=== PATIENT | male | born 1970 | race Caucasian/White ===

== ENCOUNTER 2016-12-03 17:52 | Inpatient (IN) | payer SELFPAY ==
[~2016-12-03] VITALS: Ht 175.3 cm; Wt 116.0 kg
[2016-12-03 17:54] VITALS: BP 166/99; PULSE 104; RESP 20; TEMP 100.4; O2SAT 95
--- NOTE | 2016-12-03 17:59 | PD ---
Physical Exam Time Seen by Provider: 17:56 Narrative 46yo M c/o R sided facial swelling, fevers, throat pain since last night. Can swallow own saliva. +R sided airway edema. Denies difficulty breathing. Patient seen in triage. VS reviewed. Awaiting bed placement. Data Data Last Documented VS Vital Signs Date Time Temp Pulse Resp B/P (MAP) Pulse Ox O2 Delivery O2 Flow Rate FiO2 12/03/16 17:54 100.4 104 20 166/99 (121) 95 Room Air MDM Supervised Visit with YINA: Olivia Bingham Dec 03, 2016 17:59
[2016-12-03] MEDS ORDERED: CLINDAMYCIN INJ 600 MG in SODIUM CHLORIDE 0.9% INJ 100 ML IV ONE (18:45)
[2016-12-03] MEDS ORDERED: SODIUM CHLOR 0.9% 1000 ML INJ 1,000 ML IV ONE (18:45)
[2016-12-03] MEDS ORDERED: ACETAMINOPHEN 325 MG TAB PO ONE (18:45)
--- NOTE | 2016-12-03 18:47 | PD ---
HPI Chief Complaint: Facial Pain or Swelling Time Seen by Provider: 18:14 Travel History International Travel<30 days: No Contact w/Intl Traveler<30days: No Traveled to known affect area: No History of Present Illness HPI Patient is a 46-year-old male who presents to emergency room complaints of right -sided facial swelling with fevers and chills which started yesterday. Patient reports that he was working today and noticed that his right side of his face was swollen,. Patient denies any injuries, no other c/o. PFSH Past Medical History Medical History: Denies Significant Hx Diminished Hearing: No Tetanus Vaccination: < 5 Years Influenza Vaccination: No Past Surgical History Surgical History: No Previous Surgery Social History Alcohol Use: No Tobacco Use: No Substance Use: No Allergies-Medications (Allergen,Severity, Reaction): Coded Allergies: No Known Allergies (Unverified , 12/03/16) Reported Meds & Prescriptions Reported Meds & Active Scripts Active No Active Prescriptions or Reported Medications Review of Systems HENT: Positive: Neck Pain, Other (right sided facial swelling/pain) Physical Exam Narrative GENERAL: Mild distress SKIN: Focused skin assessment warm/dry. HEAD: Atraumatic. Normocephalic. EYES: Pupils equal and round. No scleral icterus. No injection or drainage. ENT: No nasal bleeding or discharge. Mucous membranes pink and moist. Patient with swelling to right lower jaw, no trismus on exam NECK: Trachea midline. No JVD. CARDIOVASCULAR: Regular rate and rhythm. No murmur appreciated. RESPIRATORY: No accessory muscle use. Clear to auscultation. Breath sounds equal bilaterally. GASTROINTESTINAL: Abdomen soft, non-tender, nondistended. Hepatic and splenic margins not palpable. MUSCULOSKELETAL: No obvious deformities. No clubbing. No cyanosis. No edema. NEUROLOGICAL: Awake and alert. No obvious cranial nerve deficits. Motor grossly within normal limits. Normal speech. PSYCHIATRIC: Appropriate mood and affect; insight and judgment normal. Data Data Last Documented VS Vital Signs Date Time Temp Pulse Resp B/P (MAP) Pulse Ox O2 Delivery O2 Flow Rate FiO2 12/03/16 17:54 100.4 104 20 166/99 (121) 95 Room Air Orders Orders Complete Blood Count With Diff (12/03/16 17:59) Comprehensive Metabolic Panel (12/03/16 17:59) Prothrombin Time / Inr (Pt) (12/03/16 17:59) Act Partial Throm Time (Ptt) (12/03/16 17:59) Lactic Acid Sepsis Protocol (12/03/16 17:59) Urinalysis - C+S If Indicated (12/03/16 17:59) Blood Culture (12/03/16 17:59) Ecg Monitoring (12/03/16 17:59) Iv Access Insert/Monitor (12/03/16 17:59) Oximetry (12/03/16 17:59) Ct Soft Tiss Neck W Iv Cont (12/03/16 ) Clindamycin Inj (Cleocin Inj) (12/03/16 18:45) MDM Medical Decision Making Medical Screen Exam Complete: Yes Emergency Medical Condition: Yes Interpretation(s) Vital Signs Date Time Temp Pulse Resp B/P (MAP) Pulse Ox O2 Delivery O2 Flow Rate FiO2 12/03/16 17:54 100.4 104 20 166/99 (121) 95 Room Air Differential Diagnosis Differential includes facial abscess, Ck's angina, cellulitis, dental infection/abscess, parotitis Narrative Course Patient is a 46-year-old male who presents to emergency room with swelling to the right side of his face. Swelling began yesterday. Patient febrile with a temp of 100.4, patient tachycardic with a HR of 104, sepsis workup initiated, patient has been pancultured, lactate ordered. IV fluids as well as clindamycin ordered. CT soft tissue of neck ordered Patient signed out to Dr. Elias at change of shift Scripts No Active Prescriptions or Reported Meds Holly Kessler DO Dec 03, 2016 18:47
[2016-12-03 18:52] LABS: AUTOMATED NEUTROPHIL # 11.3 TH/MM3 (1.8-7.7); BASOPHIL % 0.3 % (0.0-2.0); EOSINOPHIL % 0.2 % (0.0-4.0); HEMATOCRIT 43.2 % (39.0-51.0); LYMPH % 11.3 % (9.0-44.0); LYMPHOCYTE # 1.6 TH/MM3 (1.0-4.8); MEAN CELL VOLUME 94.5 FL (80.0-100.0); MEAN CORPUSCULAR HEMOGLOBIN 32.4 PG (27.0-34.0); MEAN CORPUSCULAR HGB CONC 34.3 % (32.0-36.0); MONO % 9.4 % (0.0-8.0); NEUT % 78.8 % (16.0-70.0); PLATELET COUNT 191 TH/MM3 (150-450); RED BLOOD COUNT 4.57 MIL/MM3 (4.50-5.90); WHITE BLOOD COUNT 14.4 TH/MM3 (4.0-11.0)
[2016-12-03 18:53] VITALS: BP 149/80; PULSE 80; RESP 20; TEMP 99.4; O2SAT 95
[2016-12-03 18:54] LABS: HEMO FLAGS AUTO DIFF
[2016-12-03 19:05] LABS: APTT (PATIENT) 29.1 SEC (24.3-30.1); INTERNATIONAL NORMALIZED RATIO 1.1 RATIO; PROTHROMBIN TIME - PATIENT 12.3 SEC (9.8-11.6)
[2016-12-03 19:06] VITALS: BP 149/80; PULSE 80; RESP 20; TEMP 99.4; O2SAT 98
[2016-12-03 19:09] LABS: ANION GAP 9 MEQ/L (5-15); AST (GOT) 25 U/L (15-37); BICARBONATE 25.4 MEQ/L (21.0-32.0); BLOOD UREA NITROGEN 11 MG/DL (7-18); CHLORIDE 101 MEQ/L (98-107); GLOMERULAR FILTRATION RATE 78 ML/MIN (>89); POTASSIUM 3.6 MEQ/L (3.5-5.1); SODIUM (NA) 135 MEQ/L (136-145)
[2016-12-03 19:10] LABS: ALT (GPT) 29 U/L (12-78)
--- NOTE | 2016-12-03 19:11 | PD ---
Physical Exam Narrative Received sign out from previous team to follow up CT soft tissue neck and labs. Please see her note for further details. 46yo M with HTN here with right sided facial swelling and pain since yesterday. States it occur relatively fast and had some sob yesterday that resolved. Pt feels better after the antibiotics. Pt was initially febrile at 100.4 and HR 104bpm. Pt was given acetaminophen, NS IVF, and clindamycin and is feeling better. Labs reviewed, leukocytosis at 14.4. Normal lactic acid. CT soft tissue neck showed complex heterogeneously enhancing mass right upper neck in anterior triangle and diagstric region extending into the parapharyngeal space. Neoplasm cannot be absolutely excluded. Although from clinical presentation, I think this is infectious. Discussed with Dr. Chapman and accepted to her service. Discussed with Dr. Tran from ENT and he agreed to see him. Data Data Last Documented VS Vital Signs Date Time Temp Pulse Resp B/P (MAP) Pulse Ox O2 Delivery O2 Flow Rate FiO2 12/03/16 20:05 77 18 143/85 (104) 99 Room Air 12/03/16 19:06 99.4 Orders Orders Complete Blood Count With Diff (12/03/16 17:59) Comprehensive Metabolic Panel (12/03/16 17:59) Prothrombin Time / Inr (Pt) (12/03/16 17:59) Act Partial Throm Time (Ptt) (12/03/16 17:59) Lactic Acid Sepsis Protocol (12/03/16 17:59) Urinalysis - C+S If Indicated (12/03/16 17:59) Blood Culture (12/03/16 17:59) Ecg Monitoring (12/03/16 17:59) Iv Access Insert/Monitor (12/03/16 17:59) Oximetry (12/03/16 17:59) Ct Soft Tiss Neck W Iv Cont (12/03/16 ) Clindamycin Inj (Cleocin Inj) (12/03/16 18:45) Acetaminophen (Tylenol) (12/03/16 18:45) Sodium Chlor 0.9% 1000 Ml Inj (Ns 1000 M (12/03/16 18:45) Iohexol 350 Inj (Omnipaque 350 Inj) (12/03/16 20:01) Admit To Inpatient (12/03/16 ) Vital Signs (Adult) Q4H (12/03/16 21:47) Activity Oob With Assistance (12/03/16 21:47) Microsoft Access Developer / Telemetry .CONTINUOUS (12/03/16 21:47) Diet Clear Liquid (12/04/16 Breakfast) Sodium Chloride 0.9% Flush (Ns Flush) (12/03/16 22:00) Sodium Chloride 0.9% Flush (Ns Flush) (12/04/16 09:00) Basic Metabolic Panel (Bmp) (12/04/16 06:00) Complete Blood Count With Diff (12/04/16 06:00) Case Management Consult (12/03/16 21:47) Naloxone Inj (Narcan Inj) (12/03/16 22:00) Inpatient Certification (12/03/16 ) Consult Ent (12/03/16 ) Dexamethasone Inj (Decadron Inj) (12/04/16 00:00) Ampicillin-Sulbactam Inj (Unasyn Inj) (12/03/16 22:00) Clindamycin Inj (Cleocin Inj) (12/04/16 04:00) Admit Order (Ed Use Only) (12/03/16 21:57) Labs Laboratory Tests Test 12/03/16 18:25 White Blood Count 14.4 TH/MM3 Red Blood Count 4.57 MIL/MM3 Hemoglobin 14.8 GM/DL Hematocrit 43.2 % Mean Corpuscular Volume 94.5 FL Mean Corpuscular Hemoglobin 32.4 PG Mean Corpuscular Hemoglobin Concent 34.3 % Red Cell Distribution Width 13.0 % Platelet Count 191 TH/MM3 Mean Platelet Volume 8.3 FL Neutrophils (%) (Auto) 78.8 % Lymphocytes (%) (Auto) 11.3 % Monocytes (%) (Auto) 9.4 % Eosinophils (%) (Auto) 0.2 % Basophils (%) (Auto) 0.3 % Neutrophils # (Auto) 11.3 TH/MM3 Lymphocytes # (Auto) 1.6 TH/MM3 Monocytes # (Auto) 1.4 TH/MM3 Eosinophils # (Auto) 0.0 TH/MM3 Basophils # (Auto) 0.0 TH/MM3 CBC Comment AUTO DIFF Differential Comment AUTO DIFF CONFIRMED Prothrombin Time 12.3 SEC Prothromb Time International Ratio 1.1 RATIO Activated Partial Thromboplast Time 29.1 SEC Blood Urea Nitrogen 11 MG/DL Creatinine 1.03 MG/DL Random Glucose 112 MG/DL Total Protein 7.7 GM/DL Albumin 3.5 GM/DL Calcium Level 8.6 MG/DL Alkaline Phosphatase 84 U/L Aspartate Amino Transf (AST/SGOT) 25 U/L Alanine Aminotransferase (ALT/SGPT) 29 U/L Total Bilirubin 0.6 MG/DL Sodium Level 135 MEQ/L Potassium Level 3.6 MEQ/L Chloride Level 101 MEQ/L Carbon Dioxide Level 25.4 MEQ/L Anion Gap 9 MEQ/L Estimat Glomerular Filtration Rate 78 ML/MIN Lactic Acid Level 0.7 mmol/L MDM Supervised Visit with YINA: No Diagnosis Primary Impression: Cellulitis, face Admitting Information Admitting Physician Requests: Admit Scripts No Active Prescriptions or Reported Meds Kaia Elias DO Dec 03, 2016 19:11
[2016-12-03 19:12] LABS: ALKALINE PHOSPHATASE 84 U/L (45-117); TOTAL BILIRUBIN ADULT 0.6 MG/DL (0.2-1.0)
[2016-12-03 19:55] LABS: SCAN/DIFF AUTO DIFF CONFIRMED
[2016-12-03] MEDS ORDERED: IOHEXOL 350 MG/ML 10 ML VIAL (for RAD DIAG) IVCONTRAST ONE (20:01)
[2016-12-03 20:05] VITALS: BP 143/85; PULSE 77; RESP 18; O2SAT 99
--- NOTE | 2016-12-03 21:32 | RADRPT ---
EXAM DATE/TIME: 12/03/2016 19:41 [facility] COMPARISON: No previous studies available for comparison. INDICATIONS : Swelling and pain right face and mandibal area. IV CONTRAST: 69 cc Omnipaque 350 (iohexol) IV RADIATION DOSE: 16.89 CTDIvol (mGy) MEDICAL HISTORY : None SURGICAL HISTORY : None. ENCOUNTER: Initial ACUITY: 1 day PAIN SCALE: 5/10 LOCATION: neck TECHNIQUE: Volumetric scanning of the neck was performed. Using automated exposure control and a djustment of the mA and/or kV according to patient size, radiation dose was kept as low as reasonably achievable to obtain optimal diagnostic quality images. DICOM format image data is available elect ronically for review and comparison. FINDINGS: There is a mass seen in the anterior triangle/digastric region in the right side of the neck. This measures at least 3.8 cm in diameter. It does have areas of heterogeneous contrast enha ncement. It does abut the lateral aspect of the oropharynx on the right. The tonsils appear enlarge d especially on the right. There does appear to be induration in the subcutaneous fat in the right u pper neck and right side of the face around this region. The submandibular gland on the right is ant eriorly displaced. The left side of the neck is unremarkable. The nasopharynx appears. The hypopharynx and glottic structures are grossly intact. The thyroid glan d is normal. The parotid glands are grossly intact. There are some mildly prominent lymph nodes see n in the posterior triangle region on the right side. The bony structures are grossly intact. CONCLUSION: Complex heterogeneously enhancing mass seen in the right upper neck in the anterior t riangle and digastric region and extending into the parapharyngeal space. This does appear to be ass ociated with induration of the subcutaneous fat throughout the right upper neck and lower face region . The induration of the fat is most suggestive of an inflammatory process such as infection. The mas s may represent confluent areas adenopathy. The tonsils appear enlarged. Neoplasm cannot absolutely be excluded. This should be correlated with the patient's clinical symptoms. Lincoln Trammell MD on December 03, 2016 at 20:58 Board Certified Radiologist. This report was verified electronically.
[2016-12-03] MEDS ORDERED: NALOXONE HCL 0.4 MG/ML AMP IV PRN (22:00)
[2016-12-03] MEDS ORDERED: SODIUM CHLORIDE 0.9% FLUSH 10 ML FLUSH IV FLUSH PRN (22:00)
[2016-12-03] MEDS: AMPICILLIN-SULBACTAM INJ 3 GM in SODIUM CHLORIDE 0.9% INJ 100 ML IV SCH (22:25)
[2016-12-03 22:45] VITALS: BP 164/110; PULSE 94; RESP 22; TEMP 99; O2SAT 98
[2016-12-03 23:41] VITALS: BP 127/78; PULSE 71; RESP 18; TEMP 98.1; O2SAT 98
[2016-12-04] VITALS (8 sets, daily range): BP systolic 131–159; BP diastolic 73–99; PULSE 70–84; RESP 18–20; TEMP 96.9–98.5; O2SAT 93–98
[2016-12-04] MEDS: DEXAMETHASONE SOD PHOS 4 MG/ML VIAL IV PUSH SCH ×5 (00:48→23:38)
[2016-12-04] MEDS ORDERED: ACETAMINOPHEN/HYDROcodone 325 MG/5 MG TAB PO PRN (01:30)
[2016-12-04] MEDS: AMPICILLIN-SULBACTAM INJ 3 GM in SODIUM CHLORIDE 0.9% INJ 100 ML IV SCH ×4 (02:44→21:59)
--- NOTE | 2016-12-04 04:19 | HHI.HP ---
HPI [facility] Primary Care Physician No Primary Care Physician Admission Diagnosis Right facial cellulitis Diagnoses: Chief Complaint: Right facial pain Travel History International Travel<30 Days: No Contact w/Intl Traveler <30 Da: No Traveled to Known Affected Are: No History of Present Illness 46 y/o English with some Burundian speaking male with a history of HTN (unsure of the medication name he takes) presented to the ED with complaints of right facial swelling and pain for the last 2 days. He states the right side of his face just began to swell and is painful with radiation down his neck. He denies any trouble swallowing or breathing. Also denies any chest pain, fever or chills. Review of Systems Except as stated in HPI: all other systems reviewed are Neg Past Family Social History Past Medical History HTN Past Surgical History Patient denies any surgical history Reported Medications Reported Meds & Active Scripts Active No Active Prescriptions or Reported Medications Allergies: Coded Allergies: No Known Allergies (Unverified , 12/03/16) Active Ordered Medications Current Medications Medications (Trade) Dose Ordered Sig/Jeff Route Start Time Stop Time Status Last Admin (NS Flush) 2 ml UNSCH PRN IV FLUSH 12/03/16 22:00 (NS Flush) 2 ml BID IV FLUSH 12/04/16 09:00 (Narcan Inj) 0.4 mg UNSCH PRN IV 12/03/16 22:00 (Decadron Inj) 4 mg Q6HR IV PUSH 12/04/16 00:00 12/04/16 04:34 Ampicillin Sodium/ Sulbactam Sodium 3 gm/Sodium Chloride 100 ml @ 200 mls/hr Q6H IV 12/03/16 22:00 12/04/16 02:44 Clindamycin Phosphate 900 mg/ Sodium Chloride 106 ml @ 212 mls/hr Q6H IV 12/04/16 04:00 12/04/16 05:22 ([place] 5-325 Mg) 1 tab Q4H PRN PO 12/04/16 01:30 12/04/16 02:39 Family History Patient denies any family history Social History Patient denies any tobacco, alcohol or illicit drug use Physical Exam Vital Signs Vital Signs Date Time Temp Pulse Resp B/P (MAP) Pulse Ox O2 Delivery O2 Flow Rate FiO2 12/04/16 02:51 84 12/03/16 23:41 98.1 71 18 127/78 (94) 98 Room Air 12/03/16 22:45 99.0 94 22 164/110 (128) 98 12/03/16 20:05 77 18 143/85 (104) 99 Room Air 12/03/16 19:06 99.4 80 20 149/80 (103) 98 Room Air 12/03/16 18:53 99.4 80 20 149/80 (103) 95 Room Air 12/03/16 17:54 100.4 104 20 166/99 (121) 95 Room Air Physical Exam GENERAL: This is a well-nourished, well-developed patient, in no apparent distress. SKIN: No rashes, ecchymoses or lesions. Cool and dry. Right facial mass. HEAD: Atraumatic. Normocephalic. EYES: Pupils equal round and reactive. Extraocular motions intact. ENT: Nose without bleeding, purulent drainage or septal hematoma. Airway patent. NECK: Trachea midline. No JVD or lymphadenopathy. CARDIOVASCULAR: Regular rate and rhythm without murmurs, gallops, or rubs. RESPIRATORY: Clear to auscultation. Breath sounds equal bilaterally. No wheezes , rales, or rhonchi. GASTROINTESTINAL: Abdomen soft, non-tender, nondistended. MUSCULOSKELETAL: Extremities without clubbing, cyanosis, or edema. No joint tenderness, effusion, or edema noted. No calf tenderness. NEUROLOGICAL: Awake and alert. Motor and sensory grossly within normal limits. Normal speech. Laboratory Laboratory Tests Test 12/03/16 18:25 White Blood Count 14.4 Red Blood Count 4.57 Hemoglobin 14.8 Hematocrit 43.2 Mean Corpuscular Volume 94.5 Mean Corpuscular Hemoglobin 32.4 Mean Corpuscular Hemoglobin Concent 34.3 Red Cell Distribution Width 13.0 Platelet Count 191 Mean Platelet Volume 8.3 Neutrophils (%) (Auto) 78.8 Lymphocytes (%) (Auto) 11.3 Monocytes (%) (Auto) 9.4 Eosinophils (%) (Auto) 0.2 Basophils (%) (Auto) 0.3 Neutrophils # (Auto) 11.3 Lymphocytes # (Auto) 1.6 Monocytes # (Auto) 1.4 Eosinophils # (Auto) 0.0 Basophils # (Auto) 0.0 CBC Comment AUTO DIFF Differential Comment AUTO DIFF CONFIRMED Prothrombin Time 12.3 Prothromb Time International Ratio 1.1 Activated Partial Thromboplast Time 29.1 Blood Urea Nitrogen 11 Creatinine 1.03 Random Glucose 112 Total Protein 7.7 Albumin 3.5 Calcium Level 8.6 Alkaline Phosphatase 84 Aspartate Amino Transf (AST/SGOT) 25 Alanine Aminotransferase (ALT/SGPT) 29 Total Bilirubin 0.6 Sodium Level 135 Potassium Level 3.6 Chloride Level 101 Carbon Dioxide Level 25.4 Anion Gap 9 Estimat Glomerular Filtration Rate 78 Lactic Acid Level 0.7 Date/Time Source Procedure Growth Status 12/03/16 18:25 Blood Peripheral Aerobic Blood Culture Pending Received 12/03/16 18:25 Blood Peripheral Anaerobic Blood Culture Pending Received Result Diagram: 12/03/16 1825 12/03/16 1825 Imaging Last Impressions Neck CT 12/03/16 0000 Signed Impressions: Service Date/Time: November 19:41 - CONCLUSION: Complex heterogeneously enhancing mass seen in the right upper neck in the anterior triangle and digastric region and extending into the parapharyngeal space. This does appear to be associated with induration of the subcutaneous fat throughout the right upper neck and lower face region. The induration of the fat is most suggestive of an inflammatory process such as infection. The mass may represent confluent areas adenopathy. The tonsils appear enlarged. Neoplasm cannot absolutely be excluded. This should be correlated with the patient's clinical symptoms. Lincoln Trammell MD Caprini VTE Risk Assessment Caprini VTE Risk Assessment: No/Low Risk (score <= 1) Caprini Risk Assessment Model Point Value = 1 Point Value = 2 Point Value = 3 Point Value = 5 Age 41-60 Minor surgery BMI > 25 kg/m2 Swollen legs Varicose veins or History of unexplained or recurrent spontaneous Oral contraceptives or hormone replacement Sepsis (< 1 month) Serious lung disease, including pneumonia (< 1 month) Abnormal pulmonary function Acute myocardial infarction Congestive heart failure (< 1 month) History of inflammatory bowel disease Medical patient at bed rest Age 61-74 Arthroscopic surgery Major open surgery (> 45 min) Laparoscopic surgery (> 45 min) Malignancy Confined to bed (> 72 hours) Immobilizing plaster cast Central venous access Age >= 75 History of VTE Family history of VTE Factor V Leiden Prothrombin [id number] Lupus anticoagulant Anticardiolipin antibodies Elevated serum homocysteine Heparin-induced thrombocytopenia Other congenital or acquired thrombophilia Stroke (< 1 month) Elective arthroplasty Hip, pelvis, or leg fracture Acute spinal cord injury (< 1 month) Prophylaxis Regimen Total Risk Factor Score Risk Level Prophylaxis Regimen 0-1 Low Early ambulation 2 Moderate Order ONE of the following: *Sequential Compression Device (SCD) *Heparin 5000 units SQ BID 3-4 Higher Order ONE of the following medications: *Heparin 5000 units SQ TID *Enoxaparin/Lovenox 40 mg SQ daily (WT < 150 kg, CrCl > 30 mL/min) *Enoxaparin/Lovenox 30 mg SQ daily (WT < 150 kg, CrCl > 10-29 mL/min) *Enoxaparin/Lovenox 30 mg SQ BID (WT < 150 kg, CrCl > 30 mL/min) AND/OR *Sequential Compression Device (SCD) 5 or more Highest Order ONE of the following medications: *Heparin 5000 units SQ TID (Preferred with Epidurals) *Enoxaparin/Lovenox 40 mg SQ daily (WT < 150 kg, CrCl > 30 mL/min) *Enoxaparin/Lovenox 30 mg SQ daily (WT < 150 kg, CrCl > 10-29 mL/min) *Enoxaparin/Lovenox 30 mg SQ BID (WT < 150 kg, CrCl > 30 mL/min) AND *Sequential Compression Device (SCD) Assessment and Plan Problem List: (1) Cellulitis, face ICD Code: L03.211 - Cellulitis of face Status: Acute (2) HTN (hypertension) ICD Code: I10 - Essential (primary) hypertension Assessment and Plan 46 y/o male with a history of HTN (unsure of the medication name he takes) presented to the ED with complaints of right facial swelling and pain for the last 2 days. Facial Cellulitis with leukocytosis, wbc 14.4 CT soft tissue neck reviewed and showed complex heterogeneously enhancing mass right upper neck in anterior triangle and diagstric region extending into the parapharyngeal space. Neoplasm cannot be absolutely excluded. -Consult ENT for recommendations -Pain management with PO [place] -Unasyn and clindamycin IV for antibiotics -Decadron IV for inflammation HTN, chronic, patient is unsure of medication he takes -Monitor vitals -Enalapril PRN if needed DVT prophylaxis: SCDs Discussed Condition With Patient and RN Physician Certification 2 Midnight Certification Type: Admission for Inpatient Services Order for Inpatient Services The services are ordered in accordance with Medicare regulations or non- Medicare payer requirements, as applicable. In the case of services not specified as inpatient-only, they are appropriately provided as inpatient services in accordance with the 2-midnight benchmark. Estimated LOS (days): 2 days is the estimated time the patient will need to remain in the hospital, assuming treatment plan goals are met and no additional complications. Post-Hospital Plan: Home Lidia Maria Dec 04, 2016 04:19
[2016-12-04] MEDS: CLINDAMYCIN INJ 900 MG in SODIUM CHLORIDE 0.9% INJ 100 ML IV SCH ×4 (05:22→23:37)
[2016-12-04] MEDS ORDERED: ENALAPRILAT 1.25 MG/ML VIAL IV PUSH PRN (06:00)
[2016-12-04 07:46] LABS: AUTOMATED NEUTROPHIL # 11.5 TH/MM3 (1.8-7.7); BASOPHIL % 0.1 % (0.0-2.0); HEMATOCRIT 43.2 % (39.0-51.0); HEMO FLAGS DIFF FINAL; LYMPH % 7.4 % (9.0-44.0); LYMPHOCYTE # 0.9 TH/MM3 (1.0-4.8); MEAN CELL VOLUME 95.7 FL (80.0-100.0); MEAN CORPUSCULAR HEMOGLOBIN 31.9 PG (27.0-34.0); MEAN CORPUSCULAR HGB CONC 33.3 % (32.0-36.0); MONO % 2.9 % (0.0-8.0); NEUT % 89.6 % (16.0-70.0); PLATELET COUNT 210 TH/MM3 (150-450); RED BLOOD COUNT 4.51 MIL/MM3 (4.50-5.90); RED CELL DISTRIBUTION WIDTH 12.9 % (11.6-17.2); WHITE BLOOD COUNT 12.9 TH/MM3 (4.0-11.0)
[2016-12-04 08:06] LABS: BICARBONATE 26.6 MEQ/L (21.0-32.0); POTASSIUM 3.9 MEQ/L (3.5-5.1)
[2016-12-04] MEDS: SODIUM CHLORIDE 0.9% FLUSH 10 ML FLUSH IV FLUSH SCH ×2 (08:57→21:00)
--- NOTE | 2016-12-04 09:08 | HHI.PR ---
Addendum to Inpatient Note Additional Information Pt states that he is feeling better, pain is better controlled and rates it a 2/ 10. Denies any CP/SOB/N/V on exam, he continues to have a large mass on the right side of neck, painful to touch. HR, RRR w no murmurs, lungs are clear, abdomen soft, NT 46 y/o male with a history of HTN (unsure of the medication name he takes) presented to the ED with complaints of right facial swelling and pain for the last 2 days. Facial Cellulitis with leukocytosis, wbc 14.4 -->12.9 CT soft tissue neck reviewed and showed complex heterogeneously enhancing mass right upper neck in anterior triangle and diagstric region extending into the parapharyngeal space. Neoplasm cannot be absolutely excluded. -ENT consulted. Appreciate assistance. -Pain controlled w PO [place] -continue Unasyn and clindamycin IV for antibiotics -continue Decadron IV for inflammation -Blood cx pending. HTN, chronic, patient is unsure of medication he takes -Monitor vitals. Will start him on amlodipine 5mg po daily. -Enalapril PRN if needed DVT prophylaxis: SCDs/heparin Sofia Castorena MD Dec 04, 2016 09:08
[2016-12-04] MEDS ORDERED: amLODIPine BESYLATE 5 MG TAB PO ONE (10:00)
--- NOTE | 2016-12-04 15:46 | MB ---
cc: VENANCIO SANABRIA MD DATE OF CONSULTATION 12/04/16 CHIEF COMPLAINT Right-sided facial swelling. HISTORY OF PRESENT ILLNESS This is a 46-year-old [place] male with some Ukrainian speaking ability, reported to the emergency room with the complaint of a right facial swelling. He reports that it started approximately 2 days ago. He is suffering what he describes as intense pain along his right pretragus area radiating down by his ear and down to his neck. It is not difficult to swallow. He is having no pain breathing. He denies any chest pain, fever, chills. PAST MEDICAL HISTORY His past medical history is significant for hypertension. PAST SURGICAL HISTORY No surgeries. MEDICATIONS He is unsure of the name of his medication that he is on at home for his blood pressure. ALLERGIES NO KNOWN DRUG ALLERGIES. SOCIAL HISTORY Denies tobacco, alcohol or drugs. PHYSICAL EXAMINATION GENERAL: The patient is alert and oriented x3, in no acute distress. VITAL SIGNS: Afebrile. Vital signs stable. HEENT: Exam reveals a right parotid swelling with tenderness and pain. There is some thickened mucopurulent saliva expressed through the right parotid duct intraorally upon compression of the right parotid area with some extensive tenderness. Flexible laryngoscopy shows no airway compromise. Widely patent oral pharyngeal and hypopharyngeal airway with bilateral ___ cords that are mobile. NECK: Exam reveals no palpable adenopathy. HEART: Regular rate and rhythm. LUNGS: Clear to auscultation. IMAGING STUDIES CT scan reviewed shows right parotid swelling and edema possibly with an underlying neoplastic lesion in the right parotid area with extensive edema extending down into the neck with a widely patent airway. ASSESSMENT/PLAN Patient with acute right parotitis. Recommend IV clindamycin while in hospital as well as a 10-day outpatient course once discharged, our service recommend sialogogues [id number] times an hour as well as warm compresses to the right face. Once the patient is discharged he should continue with sialogogues until the swelling is completely gone. He needs ENT followup in approximately 2 weeks for further evaluation to determine whether he has an underlying mass in the parotid region, once this acute parotitis has resolved. Thank you for this consultation. Venancio Sanabria AT/EO /8:31 AM /3:34 PM
[2016-12-04] MEDS: HEPARIN SODIUM - SQ 10,000 UNITS/ML VIAL SQ SCH (21:59)
[2016-12-05] VITALS: BP 148/91; PULSE 77; RESP 20; TEMP 98; O2SAT 95
[2016-12-05 04:00] VITALS: BP 134/88; PULSE 72; RESP 20; TEMP 97.5; O2SAT 96
[2016-12-05 04:13] VITALS: PULSE 62
[2016-12-05] MEDS: AMPICILLIN-SULBACTAM INJ 3 GM in SODIUM CHLORIDE 0.9% INJ 100 ML IV SCH ×2 (04:30→09:46)
[2016-12-05] MEDS: DEXAMETHASONE SOD PHOS 4 MG/ML VIAL IV PUSH SCH ×2 (05:00→14:56)
[2016-12-05] MEDS: CLINDAMYCIN INJ 900 MG in SODIUM CHLORIDE 0.9% INJ 100 ML IV SCH ×2 (05:00→09:46)
[2016-12-05 08:00] VITALS: BP 138/86; PULSE 65; RESP 16; TEMP 97.4; O2SAT 93
[2016-12-05] MEDS ORDERED: amLODIPine BESYLATE 5 MG TAB PO SCH (09:00)
[2016-12-05] MEDS ORDERED: AMLO5 PO (09:09)
[2016-12-05] MEDS ORDERED: CLIN1CAP6 PO (09:09)
--- NOTE | 2016-12-05 09:16 | HHI.DCPOC ---
Discharge Care Plan Diagnosis: (1) HTN (hypertension) (2) Cellulitis, face (3) Acute parotitis Goals to Promote Your Health * To prevent worsening of your condition and complications * To maintain your health at the optimal level Directions to Meet Your Goals Please use lemon drops 2-3x every hour to help increase salivation until the swelling has completely resolved Please apply warm compresses to right side of face several times per day Please follow up with [facility] [place] [address] [place] [address] in one week Please follow up with ENT specialist in 2 weeks to assess for any evidence of underlying mass Take your medications as prescribed - Clindamycin 600mg every 6 hours for 10 days and Prednisone 40mg daily for 4 days Follow your dietary instruction Follow activity as directed Keep your appointments as scheduled Take your immunizations and boosters as scheduled If your symptoms worsen call your PCP, if no PCP go to Urgent Care Center or Emergency Room Smoking is Dangerous to Your Health. Avoid second hand smoke Call the 24-hour hour crisis hotline for domestic abuse at Lucy Decker Dec 05, 2016 09:16
--- NOTE | 2016-12-05 09:20 | HHI.DS ---
Discharge Summary Admission Date Dec 03, 2016 at 21:58 Discharge Date: Dec 05, 2016 Admitting Diagnosis Right facial cellulitis (1) Acute parotitis ICD Code: K11.21 - Acute sialoadenitis (2) Cellulitis, face ICD Code: L03.211 - Cellulitis of face Status: Acute (3) HTN (hypertension) ICD Code: I10 - Essential (primary) hypertension Procedures None Brief History - From Admission 46 y/o [place]ian with some Irish speaking male with a history of HTN (unsure of the medication name he takes) presented to the ED with complaints of right facial swelling and pain for the last 2 days. He states the right side of his face just began to swell and is painful with radiation down his neck. He denies any trouble swallowing or breathing. Also denies any chest pain, fever or chills. CBC/BMP: 12/04/16 0631 12/04/16 0631 Significant Findings Laboratory Tests Test 12/03/16 18:25 12/04/16 06:31 White Blood Count 14.4 TH/MM3 (4.0-11.0) 12.9 TH/MM3 (4.0-11.0) Neutrophils (%) (Auto) 78.8 % (16.0-70.0) 89.6 % (16.0-70.0) Monocytes (%) (Auto) 9.4 % (0.0-8.0) Neutrophils # (Auto) 11.3 TH/MM3 (1.8-7.7) 11.5 TH/MM3 (1.8-7.7) Monocytes # (Auto) 1.4 TH/MM3 (0-0.9) Prothrombin Time 12.3 SEC (9.8-11.6) Random Glucose 112 MG/DL (74-106) 129 MG/DL (74-106) Sodium Level 135 MEQ/L (136-145) Estimat Glomerular Filtration Rate 78 ML/MIN (>89) Lymphocytes (%) (Auto) 7.4 % (9.0-44.0) Lymphocytes # (Auto) 0.9 TH/MM3 (1.0-4.8) Imaging Last Impressions Neck CT 12/03/16 0000 Signed Impressions: Service Date/Time: November 19:41 - CONCLUSION: Complex heterogeneously enhancing mass seen in the right upper neck in the anterior triangle and digastric region and extending into the parapharyngeal space. This does appear to be associated with induration of the subcutaneous fat throughout the right upper neck and lower face region. The induration of the fat is most suggestive of an inflammatory process such as infection. The mass may represent confluent areas adenopathy. The tonsils appear enlarged. Neoplasm cannot absolutely be excluded. This should be correlated with the patient's clinical symptoms. Lincoln Trammell MD PE at Discharge GENERAL: This is a well-nourished, well-developed patient, in no apparent distress. Awake and alert. Appears comfortable. SKIN: Cool and dry. Right facial mass much improved with significant decrease in swelling and tenderness. HEAD: Atraumatic. EYES: Pupils equal round and reactive. Extraocular motions intact. ENT: Nose without bleeding or purulent drainage. Airway patent. NECK: Trachea midline. CARDIOVASCULAR: Regular rate and rhythm without murmurs, gallops, or rubs. RESPIRATORY: Clear to auscultation. Breath sounds equal bilaterally. No wheezes , rales, or rhonchi. GASTROINTESTINAL: Abdomen soft, non-tender, nondistended. MUSCULOSKELETAL: Extremities without clubbing, cyanosis, or edema. No joint tenderness, effusion, or edema noted. No calf tenderness. NEUROLOGICAL: Awake and alert. Motor and sensory grossly within normal limits. Normal speech. Pt update on day of discharge Patient seen and examined today. Patient reports he feels well. Denies any fever or chills. Hospital Course 46 y/o male with a history of HTN (unsure of the medication name he takes) presented to the ED with complaints of right facial swelling and pain for the last 2 days. Facial Cellulitis with leukocytosis, wbc 14.4 -->12.9 CT soft tissue neck reviewed and showed complex heterogeneously enhancing mass right upper neck in anterior triangle and diagstric region extending into the parapharyngeal space. Neoplasm cannot be absolutely excluded. - ENT consulted. Appreciate assistance. Impression - acute right parotitis with recommendations of 10 day outpatient course of clindamycin, sialogogues 2 to 3 times per day, warm compresses and followup with ENT in 2 weeks for further evaluation to determine if underlying mass in the right parotid region once the acute phase has resolved - Pain much improved - continue Unasyn and clindamycin IV for antibiotics until discharge then Clindamycin 600mg q6h x 10 days as outpatient - continue Decadron IV for inflammation until d/c then Prednisone 40mg daily x 4 days as outpatient - Blood cx shows no growth x 48hrs HTN, chronic, patient is unsure of medication he takes - controlled on Norvasc 5mg daily. Continue. DVT prophylaxis: SCDs/heparin The exam, history, and the medical decision-making described in the above note were completed with the assistance of the mid-level provider. I reviewed and agree with the findings presented. I attest that I had a [id number] encounter with the patient on the same day, and personally performed and documented my assessment and findings in the medical record. Pt comfortable going home. confirms he has insurance and can f/u w PCP. Pain controlled. on exam: swelling much improved and not as tender w palpation on affected area Pt will be discharged today. He will f/u w ENT as recommended. He will also establish care w PCP. Recommendations for his acute right parotitis were 10 days of outpatient course of clindamycin, sialogogues 2 to 3 times per day, warm compresses Pt Condition on Discharge: Stable Discharge Disposition: Discharge Home Discharge Time: > 30 minutes Discharge Instructions DIET: Follow Instructions for: Heart Healthy Diet Activities you can perform: Regular-No Restrictions Follow up Referrals: Ear Nose Throat - 2 Weeks PCP Follow-up - 1 Week New Medications: Clindamycin (Clindamycin) 300 Mg Cap 600 MG PO Q6H for Infection for 10 Days, CAP 0 Refills Prednisone (Prednisone) 20 Mg Tab 40 MG PO DAILY for INFLAMMATION for 4 Days, #10 TAB 0 Refills Take 40 mg (2 tablets) daily for 5 days Amlodipine (Norvasc) 5 Mg Tab 5 MG PO DAILY for Blood Pressure Management for 30 Days, #30 TAB Lucy Decker Dec 05, 2016 09:20 Sofia Castorena MD Dec 07, 2016 17:51
[2016-12-05] MEDS: HEPARIN SODIUM - SQ 10,000 UNITS/ML VIAL SQ SCH (09:45)
[2016-12-05] MEDS: SODIUM CHLORIDE 0.9% FLUSH 10 ML FLUSH IV FLUSH SCH (09:46)
[2016-12-05 11:43] LABS: BLOOD, URINE TRACE (NEG); COMMENT (UR) CATH-CULT NOT IND; CULTURE IF INDICATED CATH CULTURE NOT IND; GLUCOSE,URINE NEG (NEG); KETONE, URINE NEG (NEG); MUCUS URINE FEW /lpf (OCC); NITRITE,URINE NEG (NEG); URINE COLOR LIGHT-YELLOW (YELLW/STRAW)
[2016-12-05 12:00] VITALS: BP 168/95; PULSE 85; RESP 18; TEMP 97.3; O2SAT 96
[2016-12-05] MEDS ORDERED: PRED20 PO (12:24)
== END 2016-12-05 15:24 | disposition home or self-care (01) | DRG 603 ==
LOC: NEPC 17:52 → NEDA 21:58 → HOCA 23:49
PROVIDERS: ADMIT Hospitalist; ATTEND Hospitalist
DX: L03.211 Cellulitis of face (principal); I10 Essential (primary) hypertension; K11.21 Acute sialoadenitis
CPT/HCPCS: 70491; 80048; 80053; 81001; 83605; 85025; 85610; 85730; 87040; 96365; J0295; J1100; J1644; J7030; Q9967

== ENCOUNTER 2017-04-07 13:17 | Emergency (ER) | payer SELFPAY ==
[~2017-04-07] VITALS: Ht 177.8 cm; Wt 100.0 kg
[~2017-04-07 13:17] MED LIST: AMLO5 PO; CLIN300C5 PO; PRED20 PO
[2017-04-07 13:18] VITALS: BP 176/119; PULSE 87; RESP 18; TEMP 97.9; O2SAT 95
[2017-04-07] MEDS ORDERED: SODIUM CHLORIDE 0.9% FLUSH 10 ML FLUSH IVF PRN (13:45)
[2017-04-07] MEDS ORDERED: SODIUM CHLOR 0.9% 1000 ML INJ 1,000 ML IV ONE ×2 (13:45→15:15)
[2017-04-07] MEDS ORDERED: KETOROLAC TROMETHAMINE 30 MG/ML (IVP) VIAL IVP ONE (13:45)
[2017-04-07] MEDS ORDERED: ONDANSETRON HCL 4 MG/2 ML VIAL IVP ONE (13:45)
--- NOTE | 2017-04-07 14:29 | RADRPT ---
EXAM DATE/TIME: 04/07/2017 14:11 [facility] COMPARISON: No previous studies available for comparison. INDICATIONS : Vomiting, right flank pain ORAL CONTRAST: No oral contrast ingested. RADIATION DOSE: 13.46 CTDIvol (mGy) MEDICAL HISTORY : Hypertension. SURGICAL HISTORY : None. ENCOUNTER: Initial ACUITY: 1 day PAIN SCALE: 8/10 LOCATION: Right Abdomen TECHNIQUE: Volumetric scanning of the abdomen and pelvis was performed. Using automated exposure control and ad justment of the mA and/or kV according to patient size, radiation dose was kept as low as reasonably achievable to obtain optimal diagnostic quality images. DICOM format image data is available electro nically for review and comparison. FINDINGS: Granuloma right lung otherwise clear Liver is small. Gallbladder, spleen and pancreas are unremarkable The adrenal glands appear normal Right kidney: There are no stones or perinephric stranding. There no calcifications along the expected course of t he right ureter. The left kidney: There are 2 low density lesions in the left kidney, largest measuring 3.4 cm. There is no retroperitoneal adenopathy Cecum and terminal ileum appear unremarkable Pelvic contents are normal Review of bone windows reveals only degenerative changes. CONCLUSION: Negative for stone or obstruction In spite of history bowel gas appears reasonably normal Granuloma right lung. Scott Mayes MD FACR on April 07, 2017 at 14:24 Board Certified Radiologist. This report was verified electronically.
[2017-04-07] MEDS ORDERED: PROCHLORPERAZINE INJ 10 MG/2 ML VIAL IV PUSH ONE (14:45)
[2017-04-07] MEDS ORDERED: diphenhydrAMINE HCL 50 MG/ML VIAL IV PUSH ONE (14:45)
--- NOTE | 2017-04-07 14:55 | PD ---
HPI . Vomiting Chief Complaint: Flank/Kidney Pain Time Seen by Provider: 13:37 Travel History International Travel<30 days: No Contact w/Intl Traveler<30days: No Traveled to known affect area: No History of Present Illness HPI 47 yo male presents to ED with cc of vomiting x4 since this am. It started last night with a headache. He woke up this morning with a continued headache, chills and vomited x4. He complains of low back pain that shoots down his right leg with no numbness or tingling of his extremities. He also reports increased urinary frequency of 4-6 times per day. He denies any neck stiffness, diarrhea, fever, new foods or sick contacts. He rates his pain at 10/10 with no modifying factors. PFSH Past Medical History Arthritis: No Asthma: No Autoimmune Disease: No Heart Rhythm Problems: No Cancer: No Cardiovascular Problems: No High Cholesterol: No Chemotherapy: No Chest Pain: No Congestive Heart Failure: No COPD: No Cerebrovascular Accident: No Diabetes: No Diminished Hearing: No Endocrine: No Gastrointestinal Disorders: No GERD: No Genitourinary: No Headaches: No Hiatal Hernia: No Heparin Induced Thrombocytopen: No Hypertension: Yes Immune Disorder: No Implanted Vascular Access Dvce: No Kidney Stones: No Musculoskeletal: No Neurologic: Yes Psychiatric: No Reproductive: No Respiratory: Yes (sleep apnea) Migraines: No Radiation Therapy: No Renal Failure: No Seizures: No Sickle Cell Disease: No Thyroid Disease: No Ulcer: No Tetanus Vaccination: < 5 Years Influenza Vaccination: No Past Surgical History Abdominal Surgery: No AICD: No Arteriovenous Shunt: No Cardiac Surgery: No Ear Surgery: No Endocrine Surgery: No Eye Surgery: No Genitourinary Surgery: No Gynecologic Surgery: No Insulin Pump: No Joint Replacement: No Neurologic Surgery: No Oral Surgery: No Pacemaker: No Thoracic Surgery: No Other Surgery: No Social History Alcohol Use: Yes (occu) Tobacco Use: No Substance Use: No Allergies-Medications (Allergen,Severity, Reaction): Coded Allergies: No Known Allergies (Unverified , 12/03/16) Reported Meds & Prescriptions Reported Meds & Active Scripts Active Prednisone 20 Mg Tab 40 Mg PO DAILY 4 Days Take 40 mg (2 tablets) daily for 5 days Clindamycin (Clindamycin HCl) 300 Mg Cap 600 Mg PO Q6H 10 Days Norvasc (Amlodipine Besylate) 5 Mg Tab 5 Mg PO DAILY 30 Days Review of Systems Except as stated in HPI: all other systems reviewed are Neg General / Constitutional: Positive: Chills HENT: Positive: Headaches Respiratory: No: Night Sweats Gastrointestinal: Positive: Nausea, Vomiting, No: Diarrhea, Abdominal Pain Genitourinary: Positive: Frequency Musculoskeletal: Positive: Arthralgias (right hip), Pain (right leg pain) Physical Exam Narrative General: middle aged male who is mildly diaphoretic but in no sign of acute distress HEENT: SHREE, tympanic membranes intact and without erythema, nasal passages patent and without exudate, throat non-erythematous. Lymph nodes non-palpable Cardiac: regular rate and rhythm, no rubs, murmurs or gallops. Capillary refill < 3 secs. Pulmonary: clear to auscultation bilaterally. No wheezes, rales, rhonchi Abdominal: bowel sounds all 4 quadrants. No tenderness to palpation. No rebound tenderness. No CVA tenderness. Skin: mildly diaphoretic Psych: congruent mood and affect Neuro: A & O X 3. no obvious CN deficits. CAMERON equally. Data Data Last Documented VS Vital Signs Date Time Temp Pulse Resp B/P (MAP) Pulse Ox O2 Delivery O2 Flow Rate FiO2 04/07/17 13:18 97.9 87 18 176/119 (138) 95 Room Air Orders Orders Urinalysis - C+S If Indicated (04/07/17 13:45) Ct Abd/Pel W/O Iv Contrast (04/07/17 13:45) Iv Access Insert/Monitor (04/07/17 13:45) Ketorolac Inj (Toradol Inj) (04/07/17 13:45) Ondansetron Inj (Zofran Inj) (04/07/17 13:45) Sodium Chloride 0.9% Flush (Ns Flush) (04/07/17 13:45) Sodium Chlor 0.9% 1000 Ml Inj (Ns 1000 M (04/07/17 13:45) Diphenhydramine Inj (Benadryl Inj) (04/07/17 14:45) Prochlorperazine Inj (Compazine Inj) (04/07/17 14:45) Sodium Chlor 0.9% 1000 Ml Inj (Ns 1000 M (04/07/17 15:15) Labs Laboratory Tests Test 04/07/17 16:05 Urine Color YELLOW Urine Turbidity HAZY Urine pH 7.5 Urine Specific [place] 1.014 Urine Protein TRACE mg/dL Urine Glucose (UA) NEG mg/dL Urine Ketones NEG mg/dL Urine Occult Blood NEG Urine Nitrite NEG Urine Bilirubin NEG Urine Urobilinogen LESS THAN 2.0 MG/DL Urine Leukocyte Esterase NEG Urine RBC 3 /hpf Urine WBC 1 /hpf Urine Hyaline Casts 1 /lpf Urine Mucus FEW /lpf Microscopic Urinalysis Comment CULT NOT INDICATED MDM Medical Decision Making Medical Screen Exam Complete: Yes Emergency Medical Condition: Yes Differential Diagnosis gastroenteritis, pyelonephritis, influenza, meningitis, sciatica, musculoskeletal pain Narrative Course Patient presented to ED with complaints of emesis x4, headache, and chills since last night in addition to right sided low back pain shooting to the right leg and increased urinary frequency. Zofran and Toradol were administered. An abdominal CT was negative for stones. Urinalysis is pending. The patient continued to complain with headache. He was subsequently given Compazine and Benadryl. Last Impressions Abdomen/Pelvis CT 04/07/17 1345 Signed Impressions: Service Date/Time: Friday, April 07, 2017 14:11 - CONCLUSION: Negative for stone or obstruction In spite of history bowel gas appears reasonably normal Granuloma right lung. Scott Mayes MD FACR UA is negative. He will be discharged home. Diagnosis Primary Impression: Vomiting Qualified Codes: R11.2 - Nausea with vomiting, unspecified Additional Impressions: Headache Qualified Codes: R51 - Headache Viral syndrome Sciatica Qualified Codes: M54.31 - Sciatica, right side Patient Instructions: General Instructions, Viral Syndrome (DC) Disposition: 01 DISCHARGE HOME Condition: Stable Sabrina Coffey MD Apr 07, 2017 14:55
[2017-04-07 16:38] LABS: BILIRUBIN, URINE NEG (NEG); BLOOD, URINE NEG (NEG); GLUCOSE,URINE NEG (NEG); HYALINE CAST, URINE 1 /lpf (RARE); KETONE, URINE NEG (NEG); MUCUS URINE FEW /lpf (OCC); NITRITE,URINE NEG (NEG); PH, URINE 7.5 (5.0-8.5); URINE COLOR YELLOW (YELLW/STRAW); URINE LEUKOCYTE ESTERASE NEG (NEG)
== END 2017-04-07 17:20 | disposition home or self-care (01) ==
LOC: NEPD 13:17
DX: R11.2 Nausea with vomiting, unspecified (principal); R51 Headache; B34.9 Viral infection, unspecified; M54.41 Lumbago with sciatica, right side; I10 Essential (primary) hypertension
CPT/HCPCS: 74176; 81001; 96361; 96374; 96375; 99285; J0780; J1200; J1885; J2405; J7030